=== PATIENT | male | born 1995 | race Hispanic/Latino ===

== ENCOUNTER 2023-05-22 13:21 | Emergency (ER) | payer SELFPAY ==
--- NOTE | 2023-05-22 14:06 | RAD REPORT ---
EXAM DESCRIPTION: RAD - Chest Single View - 05/22/2023 2:01 pm CLINICAL HISTORY: SOB Chest pain. COMPARISON: <Comparisons> FINDINGS: Portable technique limits examination quality. The lungs are grossly clear. The heart is normal in size. No displaced fractures. IMPRESSION: No acute intrathoracic process suspected.
--- NOTE | 2023-05-22 14:14 | EDPHYS ---
Physician Documentation [facility] Kuldip [facility] Age: 27 yrs Sex: Male : 1995 Arrival Date: 05/22/2023 Time: 13:21 Bed IW2 Private MD: ED Physician Bert Potter HPI: 05/21 13:45 This 27 yrs old Male presents to ER via Ambulatory with complaints of Chemical ec2 Exposure. 13:45 Patient arrives today due to concern for chemical exposure at the request of his ec2 company. Patient reports that he was exposed some chemical, says incident occurred approximately 4 hours ago. Patient reports no shortness of breath, no difficulty breathing, no nausea or vomiting. Reports that he initially felt like his heart was racing however the symptoms have since improved.. Historical: - Allergies: 13:38 No Known Allergies; as6 - Home Meds: 13:38 None [Active]; as6 - PMHx: 13:38 None; as6 - PSHx: 13:38 None; as6 - Immunization history:: Adult Immunizations up to date. - Infectious Disease History:: Denies. - Social history:: Smoking status: Patient denies any tobacco usage or history of. ROS: 13:45 Constitutional: as per hpi ec2 Exam: 13:45 Constitutional: GEN: NAD Head: atraumatic Eyes: EOMI Ears: External ears are ec2 normal. CV: regular rate LUNGS: no respiratory distress ABD: non-distended SKIN: no evidence of rashes MSK: no evidence of trauma NEURO: moves all extremities equally Vital Signs: 13:37 BP 138 / 91; Pulse 77; Resp 16 S; Temp 97.4(TE); Pulse Ox 96% on R/A; Weight 90.72 kg as6 (R); Height 5 ft. 4 in. (R); Pain 0/10; 13:37 Body Mass Index 34.33 (90.72 kg, 162.56 cm) as6 13:37 Pain Scale: Adult as6 MDM: 13:43 Patient medically screened. ec2 13:45 Data reviewed: vital signs. ED course: Patient arrives today for evaluation of a ec2 chemical exposure. Examination remarkable for well-appearing nontoxic dividual is otherwise in no acute distress with a reassuring examination. Will obtain lab work as well as chest x-ray.. 14:14 ED course: Chest x-ray shows no acute thoracic process. Will discharge home. Instructed ec2 on return precautions. Low suspicion for emergent chemical exposure given lack of respiratory symptoms, reassuring vital signs. Will discharge home.. 04 13:44 Order name: CXR XRAY; Complete Time: 14:13 ec2 05/21 13:52 Order name: Misc. Order: cancel labs ; Complete Time: 14:25 ec2 Administered Medications: No medications were administered Disposition Summary: 05/22/23 14:14 Discharge Ordered Notes: Location: Home ec2 Condition: Stable ec2 Diagnosis - Contact with and (suspected) exposure to hazardous, chiefly nonmedicinal, chemicals ec2 Followup: ec2 - With: Private Physician - When: - Reason: Re-evaluation by your physician Discharge Instructions: - Discharge Summary Sheet ec2 - Chemical Inhalation Injury, Adult ec2 Forms: - Work release form ec2 - Medication Reconciliation Form ec2 - Thank You Letter ec2 - Antibiotic Education ec2 - Prescription Opioid Use ec2 - Patient Portal Instructions ec2 - Leadership Thank You Letter ec2 Signatures: Dispatcher [employer] EDJustin Dave RN RN as6 Bert Potter MD MD ec2 Corrections: (The following items were deleted from the chart) 13:44 13:44 CBC+H.LAB.BRZ ordered. EDMS EDMS 13:44 13:44 COMPREHENSIVE METABOLIC PANEL+C.LAB.BRZ ordered. EDMS EDMS 13:44 13:44 Chest Single View+RAD.RAD.BRZ ordered. EDMS EDMS
--- NOTE | 2023-05-22 14:14 | ER ---
Nurse's Notes [facility] Name: Kuldip Agarwal Age: 27 yrs Sex: Male : 1995 Arrival Date: 05/22/2023 Time: 13:21 Bed IW2 Private MD: Diagnosis: Contact with and (suspected) exposure to hazardous, chiefly nonmedicinal, chemicals Presentation: 05/21 13:38 Chief complaint: Patient states: "I inhaled a chemical at work and my work wanted me to as6 come get checked out". Coronavirus screen: At this time, the client does not indicate any symptoms associated with coronavirus-19. Ebola Screen: No symptoms or risks identified at this time. Initial Sepsis Screen: Does the patient meet any 2 criteria? No. Patient's initial sepsis screen is negative. Does the patient have a suspected source of infection? No. Patient's initial sepsis screen is negative. Risk Assessment: Do you want to hurt yourself or someone else? Patient reports no desire to harm self or others. Onset of symptoms was May 22, 2023. 13:38 Method Of Arrival: Ambulatory as6 13:38 Acuity: VIRAL 3 as6 Triage Assessment: 13:39 General: Appears in no apparent distress. Behavior is calm, cooperative. Pain: Denies as6 pain. Neuro: Reports weakness. Respiratory: Airway is patent Trachea midline Respiratory effort is even, unlabored, Respiratory pattern is regular, symmetrical. Historical: - Allergies: 13:38 No Known Allergies; as6 - Home Meds: 13:38 None [Active]; as6 - PMHx: 13:38 None; as6 - PSHx: 13:38 None; as6 - Immunization history:: Adult Immunizations up to date. - Infectious Disease History:: Denies. - Social history:: Smoking status: Patient denies any tobacco usage or history of. Screenin:24 [facility] ED Fall Risk Assessment (Adult) History of falling in the last 3 months, as6 including since admission No falls in past 3 months (0 pts) Confusion or Disorientation No (0 pts) Intoxicated or Sedated No (0 pts) Impaired Gait No (0 pts) Mobility Assist Device Used No (0 pt) Altered Elimination No (0 pt) Score/Fall Risk Level 0 - 2 = Low Risk Oriented to surroundings, Maintained a safe environment, Educated pt \\T\\ family on fall prevention, incl call for assistance when getting out of bed, Assessed \\T\\ reinforced patient's understanding of fall precautions. Abuse screen: Denies threats or abuse. Denies injuries from another. Nutritional screening: No deficits noted. Tuberculosis screening: No symptoms or risk factors identified. Vital Signs: 13:37 BP 138 / 91; Pulse 77; Resp 16 S; Temp 97.4(TE); Pulse Ox 96% on R/A; Weight 90.72 kg as6 (R); Height 5 ft. 4 in. (R); Pain 0/10; 13:37 Body Mass Index 34.33 (90.72 kg, 162.56 cm) as6 13:37 Pain Scale: Adult as6 ED Course: 13:24 Patient arrived in ED. mr 13:30 Bert Potter MD is Attending Physician. ec2 13:37 Arm band placed on. as6 13:39 Triage completed. as6 14:00 CXR XRAY In Process Unspecified. EDMS 14:24 Patient has correct armband on for positive identification. Provided Education on: as6 follow up. 14:25 No provider procedures requiring assistance completed. Patient did not have IV access as6 during this emergency room visit. Administered Medications: No medications were administered Medication: 14:24 VIS not applicable for this client. as6 Outcome: 14:14 Discharge ordered by . ec2 14:25 Discharged to home ambulatory, as6 14:25 Condition: stable 14:25 Discharge instructions given to patient, Instructed on discharge instructions, follow up and referral plans. Demonstrated understanding of instructions, follow-up care, 14:25 Patient left the ED. as6 Signatures: Dispatcher [employer] Dai Kingston, Reg Reg Justin Esquivel, RN RN as6 Bert Potter MD MD ec2
[2023-05-22 14:44] VITALS: BP 138/91; TEMP 97.4; O2SAT 96
== END 2023-05-22 14:25 | disposition home or self-care (01) ==
LOC: ER 13:21
DX: Z77.098 Contact with and (suspected) exposure to other hazardous, chiefly nonmedicinal, chemicals (principal)
CPT/HCPCS: 71045; 99282